=== PATIENT | female | born 1960 | race African-American/Black ===

== ENCOUNTER 2016-11-13 16:27 | Inpatient (IN) | payer OTHER ==
[2016-11-13 17:45] LABS: ABSOLUTE BASOPHILS # (AUTO) 0.1 10^3/uL (0.0-0.2); ABSOLUTE EOSINOPHILS # (AUTO) 0.1 10^3/uL (0.0-0.6); ABSOLUTE LYMPHOCYTES (AUTO) 2.4 10^3/uL (0.5-4.7); ABSOLUTE MONOCYTES (AUTO) 1.1 10^3/uL (0.1-1.4); ABSOLUTE NEUT (AUTO) 6.6 10^3/uL (1.7-8.2); BASOPHILS % (AUTO) 0.9 % (0-2); EOSINOPHILS % (AUTO) 0.6 % (0-6); HEMATOCRIT 20.2 % (36.0-47.0); HGB HCT DIFFERENCE -2.2; LYMPHOCYTES % (AUTO) 23.2 % (13-45); MEAN CORPUSCULAR HEMOGLOBIN 25.9 pg (27.0-33.4); MEAN CORPUSCULAR HGB CONC 29.5 g/dL (32.0-36.0); MEAN CORPUSCULAR VOLUME 88 fl (80-97); MONOCYTES % (AUTO) 10.5 % (3-13); RED CELL DISTRIBUTION WIDTH 21.5 % (11.5-14.0); SEGMENTED NEUTROPHILS % (AUTO) 64.8 % (42-78); WHITE BLOOD COUNT 10.1 10^3/uL (4.0-10.5)
[2016-11-13 17:58] LABS: APPEARANCE,URINE CLEAR; BILIRUBIN,URINE NEGATIVE (NEGATIVE); GLUCOSE, URINE NEGATIVE (NEGATIVE); KETONES,URINE NEGATIVE (NEGATIVE); LEUKOCYTE ESTERASE,URINE NEGATIVE (NEGATIVE); NITRITE,URINE NEGATIVE (NEGATIVE); PROTEIN,URINE NEGATIVE (NEGATIVE); URINE SPECIFIC GRAVITY 1.004; UROBILINOGEN,URINE NEGATIVE mg/dL (<2.0)
[2016-11-13] MEDS ORDERED: PANTOPRAZOLE SODIUM 40 MG VIAL IV ONE (17:58)
[2016-11-13 18:01] LABS: ALANINE AMINOTRANSFERASE 22 U/L (9-52); ALBUMIN 4.3 g/dL (3.5-5.0); ALKALINE PHOSPHATASE 60 U/L (38-126); ANION GAP 10 (5-19); ASPARTATE AMINO TRANSFERASE 16 U/L (14-36); BILIRUBIN,DIRECT 0.2 mg/dL (0.0-0.4); BILIRUBIN,TOTAL 0.3 mg/dL (0.2-1.3); BLOOD UREA NITROGEN 17 mg/dL (7-20); CALCIUM 9.4 mg/dL (8.4-10.2); CARBON DIOXIDE 23 mmol/L (22-30); CHLORIDE 106 mmol/L (98-107); CREATININE RESULT 1.14 mg/dL (0.52-1.25); GLUCOSE 94 mg/dL (75-110); POTASSIUM 4.7 mmol/L (3.6-5.0); SODIUM 139.2 mmol/L (137-145); TOTAL PROTEIN 7.1 g/dL (6.3-8.2)
--- NOTE | 2016-11-13 18:03 | ER Document Report ---
ED General - General Chief Complaint: Abnormal Lab Results Stated Complaint: FATIGUE Time Seen by Provider: 11/13/16 17:06 Notes: 56-year-old female with a history of iron deficiency anemia and known duodenitis /gastritis presents referred from her primary care doctor for anemia. She feels decreased energy and some occasional exertional shortness of breath as well as thinks that her tongue is pale. She has a history of duodenitis and gastritis, was last scoped in 2016. She does state she has been having dark stool, like dark black for about 3 weeks every day and is not taking oral iron. TRAVEL OUTSIDE OF THE [place] IN LAST 30 DAYS: No - Related Data Allergies/Adverse Reactions: No Known Allergies Allergy (Verified 11/13/16 16:35) Past Medical History - General Information source: Patient - Social History Smoking Status: Never Smoker Chew tobacco use (# tins/day): No Frequency of alcohol use: None Drug Abuse: None Family History: None - Past Medical History Cardiac Medical History: Reports: Hx Hypertension Denies: Hx Congestive Heart Failure, Hx Coronary Artery Disease, Hx Heart Attack Pulmonary Medical History: Reports: Hx Asthma Denies: Hx Bronchitis, Hx COPD, Hx Pneumonia, Hx Tuberculosis Neurological Medical History: Denies: Hx Cerebrovascular Accident, Hx Seizures Renal/ Medical History: Denies: Hx End Stage Renal Disease, Hx Kidney Stones, Hx Peritoneal Dialysis GI Medical History: Reports: Hx Gastroesophageal Reflux Disease. Denies: Hx Cirrhosis, Hx Ulcer Musculoskeltal Medical History: Denies Hx Arthritis, Denies Hx Multiple Sclerosis Psychiatric Medical History: Denies: Hx Bipolar Disorder, Hx Depression, Hx Schizophrenia Past Surgical History: Denies: Hx Hysterectomy, Hx Pacemaker - Immunizations Hx Diphtheria, Pertussis, Tetanus Vaccination: No Review of Systems - Review of Systems Notes: REVIEW OF SYSTEMS GEN: Fatigue and decreased energy ENT: Denies sore throat, nasal discharge, ear pain EYES: Denies blurry vision, eye pain, discharge CV: Denies chest pain, palpitations, edema RESP: Denies cough, shortness of breath, wheezing GI: Dark stool MSK: Denies joint pain/swelling, edema, SKIN: Denies rash, skin lesions LYMPH: Denies swollen glands/lymph nodes NEURO: Denies headache, focal weakness or numbness, dizziness PSYCH: Denies depression, suicidal or homicidal ideation PHYSICAL EXAMINATION General: No acute distress, well-nourished Head: Atraumatic, normocephalic ENT: Mouth normal, oropharynx moist, no exudates or tonsillar enlargement Eyes: Conjunctiva normal, pupils equal, lids normal Neck: No JVD, supple, no guarding CVS: Normal rate, regular rhythm, no murmurs Resp: No resp distress, equal and normal breath sounds bilaterally GI: Nondistended, soft, no tenderness to palpation, no rebound or guarding Ext: No deformities, no edema, normal range of motion in upper and lower ext Back: No CVA or midline TTP Skin: No rash, warm Lymphatic: No lymphadeopathy noted Neuro: Awake, alert. Face symmetric. GCS 15. Physical Exam - Vital signs Vitals: Temp Pulse Resp BP Pulse Ox 99.0 F 84 18 127/78 H 100 11/13/16 16:37 11/13/16 16:37 11/13/16 16:37 11/13/16 16:37 11/13/16 16:37 Course - Re-evaluation Re-evalutation: 11/13/16 18:02 56-year-old female with known iron deficiency anemia presents with black stool and decreased energy. Her outpatient hemoglobin is 5.9, her baseline seems to be 7-8. I am concerned for a slow GI bleed. I will give her Protonix, type and cross her, she is amenable to transfusion. I spoke with from GI who agrees to be consulted if the hospitalist needs him to scope the patient. Also agrees with the remainder of my plan. 11/13/16 18:12 Patient has a low hemoglobin today likely from a slow GI bleed. I spoke with GI , Dr. Tena, who agreed to see the patient later tonight. Ordered Protonix. Admitted to Dr. Dawson. - Vital Signs Vital signs: Temp Pulse Resp BP Pulse Ox 99.0 F 84 18 127/78 H 100 11/13/16 16:37 11/13/16 16:37 11/13/16 16:37 11/13/16 16:37 11/13/16 16:37 - Laboratory Result Diagrams: 11/13/16 17:25 11/13/16 17:25 Laboratory results interpreted by me: 11/13/16 11/13/16 17:25 17:25 RBC 2.30 L Hgb 6.0 L Hct 20.2 L MCH 25.9 L MCHC 29.5 L RDW 21.5 H Est GFR ( Amer) 59 L Est GFR (Non-Af Amer) 49 L - Consults No standard instances Time consulted: 18:00 - MARIBEL (GI) Reason for consultation: 11/13/16 18:03 GIBLEED Consulted provider: will see as inpatient Discharge - Discharge Clinical Impression: Anemia Qualifiers: Anemia type: iron deficiency Iron deficiency anemia type: chronic blood loss Qualified Code(s): D50.0 - Iron deficiency anemia secondary to blood loss ( chronic) Condition: Good Disposition: ADMITTED INPATIENT Admitting Provider: Hospitalist Unit Admitted: Telemetry
[2016-11-13] MEDS ORDERED: METOCLOPRAMIDE HCL ORAL SOLN 10 MG/10 ML UDCUP PO ONE (18:11)
[2016-11-13] MEDS ORDERED: FUROSEMIDE INJ/PF 20 MG/2 ML SDV IV PRN (18:11)
[2016-11-13] MEDS ORDERED: LIDOCAINE 2% VISCOUS SOLN 20 ML UDCUP PO ONE (18:11)
[2016-11-13] MEDS ORDERED: MAG HYDROX/AL HYDROX/SIMETH SUSP 30 ML UDCUP PO ONE (18:11)
[2016-11-13] MEDS ORDERED: NORMAL SALINE 250 ML IV PRN ×2 (18:11)
[2016-11-13] MEDS ORDERED: ACETAMINOPHEN 325 MG TABLET PO PRN (18:11)
[2016-11-13] MEDS ORDERED: DIPHENHYDRAMINE HCL 25 MG CAPSULE PO PRN (18:11)
[2016-11-13] MEDS ORDERED: ONDANSETRON HCL INJ/PF 4 MG/2 ML SDV IV PRN (18:16)
[2016-11-13] MEDS ORDERED: NORMAL SALINE 1000 ML 1,000 ML IV PRN (18:16)
[2016-11-13 18:42] LABS: PROTHROMBIN TIME 14.1 SEC (11.4-15.4)
[2016-11-13] MEDS ORDERED: PANTOPRAZOLE SODIUM 80 MG in NORMAL SALINE 100 ML IV ONE (18:43)
--- NOTE | 2016-11-13 18:54 | PDOC H&P ---
History of Present Illness Admission Date/PCP: 11/13/2016 [facility], unknown primary History of Present Illness: ABIEL ASTUDILLO is a 56 year old female Past Medical History Cardiac Medical History: Reports: Hypertension Denies: Congestive Heart Failure, Coronary Artery Disease, Myocardial Infarction Pulmonary Medical History: Reports: Asthma Denies: Bronchitis, Chronic Obstructive Pulmonary Disease (COPD), Pneumonia, Tuberculosis Neurological Medical History: Denies: Seizures Renal/ Medical History: Denies: End Stage Renal Disease GI Medical History: Reports: Gastroesophageal Reflux Disease Denies: Cirrhosis Musculoskeltal Medical History: Denies: Arthritis Psychiatric Medical History: Denies: Bipolar Disorder, Depression Hematology: Reports: Anemia Denies: Bleeding Tendencies Past Surgical History Past Surgical History: Reports: Other - eye surgery Denies: Hysterectomy, Pacemaker Social History Smoking Status: Never Smoker Frequency of Alcohol Use: None Hx Recreational Drug Use: No Drugs: None Hx Prescription Drug Abuse: No - Advance Directive Resuscitation Status: Full Code Surrogate healthcare decision maker:: Sister, Alta Family History Family History: CAD, DM, Hypertension Parental Family History Reviewed: Yes Children Family History Reviewed: Yes Sibling(s) Family History Reviewed.: Yes Medication/Allergy Home Medications: Lisinopril [Prinivil 5 Mg Tablet] 20 mg PO DAILY 10/05/11 Omeprazole [Prilosec 20 mg Capsule] 20 mg PO DAILY 10/05/11 Multivits-Min/Iron/FA/Lutein [Centrum Silver Women Tablet] 1 each PO DAILY 07/01 Cholecalciferol (Vitamin D3) [Vitamin D] 1,000 unit PO DAILY 06/21/15 Mv, Min #36/Iron,Carbonyl/FA [Geritol Complete Tablet] 100 mg 07/05/15 Allergies/Adverse Reactions: No Known Allergies Allergy (Verified 11/13/16 16:35) Review of Systems Constitutional: ABSENT: chills, fever(s), headache(s), weight gain, weight loss Eyes: ABSENT: visual disturbances Ears: ABSENT: hearing changes Cardiovascular: ABSENT: chest pain, dyspnea on exertion, edema, orthropnea, palpitations Respiratory: ABSENT: cough, hemoptysis Gastrointestinal: PRESENT: heartburn, melena, nausea. ABSENT: abdominal pain, coffee ground emesis, constipation, diarrhea, hematemesis, hematochezia, vomiting Genitourinary: ABSENT: dysuria, hematuria Musculoskeletal: ABSENT: joint swelling Integumentary: ABSENT: rash, wounds Neurological: ABSENT: abnormal gait, abnormal speech, confusion, dizziness, focal weakness, syncope Psychiatric: ABSENT: anxiety, depression, homidical ideation, suicidal ideation Endocrine: ABSENT: cold intolerance, heat intolerance, polydipsia, polyuria Hematologic/Lymphatic: ABSENT: easy bleeding, easy bruising Physical Exam Vital Signs: Temp Pulse Resp BP Pulse Ox 99.0 F 84 18 127/78 H 100 11/13/16 16:37 11/13/16 16:37 11/13/16 16:37 11/13/16 16:37 11/13/16 16:37 Intake & Output 11/12/16 11/13/16 11/14/16 06:59 06:59 06:59 Weight 130 kg General appearance: PRESENT: no acute distress, obese, well-developed, well- nourished Head exam: PRESENT: atraumatic, normocephalic Eye exam: PRESENT: conjunctiva pale, EOMI, PERRLA. ABSENT: conjunctiva pink, scleral icterus Ear exam: PRESENT: normal external ear exam Mouth exam: PRESENT: dry mucosa, tongue midline Neck exam: ABSENT: JVD, lymphadenopathy, thyromegaly, tracheal deviation Respiratory exam: PRESENT: clear to auscultation andres. ABSENT: rales, rhonchi, wheezes Cardiovascular exam: PRESENT: RRR, +S1, +S2. ABSENT: diastolic murmur, gallop, rubs, systolic murmur, tachycardia Pulses: PRESENT: normal dorsalis pedis pul Vascular exam: PRESENT: normal capillary refill GI/Abdominal exam: PRESENT: normal bowel sounds, soft. ABSENT: distended, firm , guarding, mass, Bae's sign, organolmegaly, rebound, rigid, tenderness Rectal exam: PRESENT: deferred Extremities exam: PRESENT: full ROM. ABSENT: calf tenderness, clubbing, pedal edema Neurological exam: PRESENT: alert, awake, oriented to person, oriented to place , oriented to time, oriented to situation, CN II-XII grossly intact. ABSENT: motor sensory deficit Psychiatric exam: PRESENT: appropriate affect, normal mood. ABSENT: homicidal ideation, suicidal ideation Skin exam: PRESENT: dry, intact, warm. ABSENT: cyanosis, rash Results Laboratory Results: 11/13/16 17:25 11/13/16 17:25 11/13/16 11/13/16 11/13/16 17:25 17:25 17:25 WBC 10.1 RBC 2.30 L Hgb 6.0 L Hct 20.2 L MCV 88 MCH 25.9 L MCHC 29.5 L RDW 21.5 H Plt Count 401 Seg Neutrophils % 64.8 Lymphocytes % 23.2 Monocytes % 10.5 Eosinophils % 0.6 Basophils % 0.9 Absolute Neutrophils 6.6 Absolute Lymphocytes 2.4 Absolute Monocytes 1.1 Absolute Eosinophils 0.1 Absolute Basophils 0.1 Sodium 139.2 Potassium 4.7 Chloride 106 Carbon Dioxide 23 Anion Gap 10 BUN 17 Creatinine 1.14 Est GFR ( Amer) 59 L Est GFR (Non-Af Amer) 49 L Glucose 94 Calcium 9.4 Total Bilirubin 0.3 AST 16 ALT 22 Alkaline Phosphatase 60 Total Protein 7.1 Albumin 4.3 Urine Color COLORLESS Urine Appearance CLEAR Urine pH 6.0 Ur Specific [place] 1.004 Urine Protein NEGATIVE Urine Glucose (UA) NEGATIVE Urine Ketones NEGATIVE Urine Blood NEGATIVE Urine Nitrite NEGATIVE Ur Leukocyte Esterase NEGATIVE Urine WBC (Auto) 1 Urine RBC (Auto) 0 Assessment & Plan - Diagnosis (1) Melena Is this a current diagnosis for this admission?: YesPlan: Patient reports an increase in dark stool over the last several days. She reports currently feeling fatigued. Denies chest pain or shortness of breath. Patient has a history of gastritis and duodenitis And was treated more than 6 months ago for H. pylori. Patient reports that she has been off of her PPI for the last several months. Will consult GI for upper endoscopy and place patient on Protonix drip. Clear liquids until midnight and then n.p.o. Place patient on Carafate. Patient denies excessive usage of Motrin, NSAIDs, Aleve, or aspirin. (2) Hypertension Qualifiers: Hypertension type: essential hypertension Qualified Code(s): I10 - Essential (primary) hypertension Is this a current diagnosis for this admission?: YesPlan: Patient reports taking lisinopril 20 mg p.o. daily (3) Anemia Qualifiers: Anemia type: iron deficiency Iron deficiency anemia type: chronic blood loss Qualified Code(s): D50.0 - Iron deficiency anemia secondary to blood loss (chronic) Is this a current diagnosis for this admission?: YesPlan: Patient with acute GI bleed and history of iron deficiency anemia. Place patient on Protonix drip and check CBC q. 6. Transfuse patient 3 Units ofpacked red blood cells. (4) Morbid obesity with BMI of 40.0-44.9, adult Is this a current diagnosis for this admission?: YesPlan: Dietary consult - Time Time Spent: 30 to 50 Minutes Medications reviewed and adjusted accordingly: Yes Anticipated discharge: Home Within: within 48 hours - Inpatient Certification Based on my medical assessment, after consideration of the patient's comorbidities, presenting symptoms, or acuity I expect that the services needed warrant INPATIENT care.: Yes I certify that my determination is in accordance with my understanding of Medicare's requirements for reasonable and necessary INPATIENT services [42 CFR 412.3e].: Yes Medical Necessity: Need For IV Fluids, Risk of Complication if Not Cared For in Hospital Post Hospital Care: D/C Leather [employer] Maker Documentation
[2016-11-13] MEDS: NORMAL SALINE 100 ML with PANTOPRAZOLE SODIUM 80 MG IV PRN ×2 (21:28)
[2016-11-13] MEDS ORDERED: BISACODYL 5 MG TABEC PO ONE (21:30)
[2016-11-13] MEDS: SUCRALFATE SUSP 1 GM/10 ML UDCUP PO SCH (22:57)
[2016-11-14] MEDS: NORMAL SALINE 100 ML with PANTOPRAZOLE SODIUM 80 MG IV PRN ×4 (06:31→15:13)
[2016-11-14] MEDS ORDERED: PEG 3350/NA SULF,BICARB,CL/KCL 4000 ML PO ONE (07:00)
[2016-11-14 08:07] LABS: ABSOLUTE BASOPHILS # (AUTO) 0.1 10^3/uL (0.0-0.2); ABSOLUTE EOSINOPHILS # (AUTO) 0.1 10^3/uL (0.0-0.6); ABSOLUTE LYMPHOCYTES (AUTO) 1.3 10^3/uL (0.5-4.7); ABSOLUTE MONOCYTES (AUTO) 0.7 10^3/uL (0.1-1.4); ABSOLUTE NEUT (AUTO) 4.5 10^3/uL (1.7-8.2); EOSINOPHILS % (AUTO) 0.9 % (0-6); HGB HCT DIFFERENCE -1.4; LYMPHOCYTES % (AUTO) 20.2 % (13-45); MEAN CORPUSCULAR HGB CONC 31.4 g/dL (32.0-36.0); MEAN CORPUSCULAR VOLUME 86 fl (80-97); MONOCYTES % (AUTO) 10.8 % (3-13); RED BLOOD COUNT 3.02 10^6/uL (3.72-5.28); RED CELL DISTRIBUTION WIDTH 19.4 % (11.5-14.0); SEGMENTED NEUTROPHILS % (AUTO) 67.1 % (42-78); WHITE BLOOD COUNT 6.7 10^3/uL (4.0-10.5)
[2016-11-14 08:13] LABS: HEMOGLOBIN 8.2 g/dL (12.0-15.5)
[2016-11-14] MEDS: SUCRALFATE SUSP 1 GM/10 ML UDCUP PO SCH ×3 (08:14→16:15)
[2016-11-14 08:22] LABS: ALANINE AMINOTRANSFERASE 21 U/L (9-52); ALBUMIN 4.4 g/dL (3.5-5.0); ALKALINE PHOSPHATASE 61 U/L (38-126); ANION GAP 9 (5-19); ASPARTATE AMINO TRANSFERASE 16 U/L (14-36); BILIRUBIN,DIRECT 0.2 mg/dL (0.0-0.4); BILIRUBIN,TOTAL 1.1 mg/dL (0.2-1.3); BLOOD UREA NITROGEN 12 mg/dL (7-20); CALCIUM 9.2 mg/dL (8.4-10.2); CARBON DIOXIDE 24 mmol/L (22-30); CHLORIDE 106 mmol/L (98-107); CREATININE RESULT 1.14 mg/dL (0.52-1.25); GLUCOSE 134 mg/dL (75-110); POTASSIUM 4.4 mmol/L (3.6-5.0); SODIUM 139.3 mmol/L (137-145)
[2016-11-14 11:41] LABS: ABSOLUTE BASOPHILS # (AUTO) 0.1 10^3/uL (0.0-0.2); ABSOLUTE EOSINOPHILS # (AUTO) 0.1 10^3/uL (0.0-0.6); ABSOLUTE LYMPHOCYTES (AUTO) 1.5 10^3/uL (0.5-4.7); ABSOLUTE MONOCYTES (AUTO) 0.9 10^3/uL (0.1-1.4); ABSOLUTE NEUT (AUTO) 5.7 10^3/uL (1.7-8.2); BASOPHILS % (AUTO) 0.7 % (0-2); EOSINOPHILS % (AUTO) 0.8 % (0-6); HEMATOCRIT 29.7 % (36.0-47.0); HEMOGLOBIN 9.6 g/dL (12.0-15.5); HGB HCT DIFFERENCE -0.9; LYMPHOCYTES % (AUTO) 18.7 % (13-45); MEAN CORPUSCULAR HEMOGLOBIN 27.7 pg (27.0-33.4); MEAN CORPUSCULAR HGB CONC 32.3 g/dL (32.0-36.0); MEAN CORPUSCULAR VOLUME 86 fl (80-97); MONOCYTES % (AUTO) 10.8 % (3-13); RED BLOOD COUNT 3.46 10^6/uL (3.72-5.28); RED CELL DISTRIBUTION WIDTH 18.7 % (11.5-14.0); WHITE BLOOD COUNT 8.2 10^3/uL (4.0-10.5)
--- NOTE | 2016-11-14 12:51 | EKG REPORT ---
SEVERITY:- ABNORMAL ECG - SINUS RHYTHM LEFT VENTRICULAR HYPERTROPHY : Confirmed by: Tonya Fuentes MD 14-Nov-2016 12:49:58
[2016-11-14] MEDS ORDERED: FENTANYL CITRATE INJ/PF 100 MCG/2 ML AMPUL ONE (14:47)
[2016-11-14] MEDS ORDERED: NALOXONE HCL INJ/PF 0.4 MG/1 ML SDV ONE (14:47)
[2016-11-14] MEDS ORDERED: GLUCAGON,HUMAN RECOMB 1 MG INJ ONE (14:47)
[2016-11-14] MEDS ORDERED: FLUMAZENIL INJ 0.5 MG/5 ML VIAL IV ONE (14:47)
[2016-11-14] MEDS ORDERED: EPINEPHRINE INJ 1 MG/10 ML DISP.SYRIN ONE (14:47)
[2016-11-14] MEDS ORDERED: HYDRALAZINE HCL INJ/PF 20 MG/1 ML SDV IV PRN (15:33)
--- NOTE | 2016-11-14 15:36 | PDOC PROGRESS REPORT ---
Subjective Progress Note for:: 11/14/16 Subjective:: Patient was prepped overnight for colonoscopy. She states she has noted no further blood in her stools overnight. She denies fever, chills, abdominal pain , nausea, vomiting. Physical Exam Vital Signs: Temp Pulse Resp BP Pulse Ox 97.8 F 70 18 149/87 H 100 11/14/16 12:06 11/14/16 14:00 11/14/16 12:06 11/14/16 12:06 11/14/16 12:06 Intake & Output 11/13/16 11/14/16 11/15/16 06:59 06:59 06:59 Intake Total 1650 4960 Balance 1650 4960 Weight 129.6 kg GENERAL: No acute distress HEENT: Conjunctiva clear, nonicteric, moist mucous membranes, no JVD, midline trachea RESPIRATORY: Clear to auscultation bilaterally, no wheezes, no rhonchi CARDIAC: Regular rate and rhythm, no murmurs/gallops/rubs ABDOMEN: Soft, nondistended, nontender, positive bowel sounds, no rebound, no guarding EXTREMETIES: No edema, cyanosis, clubbing NEUROLOGIC: Alert, oriented to person/place/time, CN's grossly intact, no focal deficits SKIN: No rash, wounds PSYCH: Normal mood, normal affect Results Laboratory Results: 11/14/16 11:30 11/14/16 07:55 11/14/16 11/14/16 11/14/16 07:55 07:55 11:30 WBC 6.7 8.2 RBC 3.02 L 3.46 L Hgb 8.2 L D 9.6 L Hct 26.0 L 29.7 L MCV 86 86 MCH 27.0 27.7 MCHC 31.4 L 32.3 RDW 19.4 H 18.7 H Plt Count 376 394 Seg Neutrophils % 67.1 69.0 Lymphocytes % 20.2 18.7 Monocytes % 10.8 10.8 Eosinophils % 0.9 0.8 Basophils % 1.0 0.7 Absolute Neutrophils 4.5 5.7 Absolute Lymphocytes 1.3 1.5 Absolute Monocytes 0.7 0.9 Absolute Eosinophils 0.1 0.1 Absolute Basophils 0.1 0.1 Sodium 139.3 Potassium 4.4 Chloride 106 Carbon Dioxide 24 Anion Gap 9 BUN 12 Creatinine 1.14 Est GFR ( Amer) 59 L Est GFR (Non-Af Amer) 49 L Glucose 134 H Calcium 9.2 Total Bilirubin 1.1 AST 16 ALT 21 Alkaline Phosphatase 61 Total Protein 7.0 Albumin 4.4 Assessment & Plan - Diagnosis (1) Melena Is this a current diagnosis for this admission?: YesPlan: Patient scheduled for EGD and colonoscopy this afternoon. IV Protonix for now. Patient incidentally had prior EGD showing gastritis and was treated for H. pylori within the past year. (2) Acute blood loss anemia Is this a current diagnosis for this admission?: YesPlan: Status post 3 units PRBC. Monitor H&H for stability. Start iron supplementation. Patient has been followed by Dr. Abebe hematology as an outpatient. (3) Hypertension Qualifiers: Hypertension type: essential hypertension Qualified Code(s): I10 - Essential (primary) hypertension Is this a current diagnosis for this admission?: YesPlan: Restart lisinopril 20 mg daily. As needed IV hydralazine. (4) Morbid obesity with BMI of 40.0-44.9, adult Is this a current diagnosis for this admission?: Yes - Time Time Spent with patient: 25-34 minutes Anticipated discharge: Home Within: within 24 hours
[2016-11-14 17:18] LABS: ABSOLUTE BASOPHILS # (AUTO) 0.1 10^3/uL (0.0-0.2); ABSOLUTE LYMPHOCYTES (AUTO) 1.6 10^3/uL (0.5-4.7); ABSOLUTE NEUT (AUTO) 6.3 10^3/uL (1.7-8.2); BASOPHILS % (AUTO) 0.9 % (0-2); EOSINOPHILS % (AUTO) 0.5 % (0-6); HEMATOCRIT 28.7 % (36.0-47.0); HEMOGLOBIN 9.3 g/dL (12.0-15.5); HGB HCT DIFFERENCE -0.8; LYMPHOCYTES % (AUTO) 18.1 % (13-45); MEAN CORPUSCULAR HEMOGLOBIN 27.9 pg (27.0-33.4); MEAN CORPUSCULAR HGB CONC 32.3 g/dL (32.0-36.0); MEAN CORPUSCULAR VOLUME 86 fl (80-97); MONOCYTES % (AUTO) 10.8 % (3-13); RED BLOOD COUNT 3.33 10^6/uL (3.72-5.28); RED CELL DISTRIBUTION WIDTH 18.7 % (11.5-14.0); SEGMENTED NEUTROPHILS % (AUTO) 69.7 % (42-78)
[2016-11-14] MEDS ORDERED: DOCUSATE SODIUM 100 MG CAPSULE PO SCH (18:00)
[2016-11-14] MEDS: MIDAZOLAM 2 MG/2 ML INJ ONE ×2 (18:50→19:05)
--- NOTE | 2016-11-14 19:03 | PDOC CONSULTATION ---
Consultation Consult Date: 11/13/16 History of Present Illness Admission Date/PCP: 11/13/16 18:16 History of Present Illness: This is a 56-year-old patient who was admitted to the emergency room with anemia. She was sent to the hospital by her PMD. Her hemoglobin was 6 with low MCH and MCHC. She has a chronic history of anemia and has been following up with Dr. Abebe. I reviewed her old blood work which showed a hemoglobin of 8 in June 2014, 6.3 in June 2015 and a ferritin of 55 in June 2014. She has been getting iron infusions. She denies abdominal pain, nausea, or vomiting. Her bowels move regularly and her stools have been dark green or black for the last 1 year. She takes multivitamin every day. She had a colonoscopy by Dr. Moreno in September 2011 that showed rectosigmoid polyps, EGD in June 2014 that showed a hiatal hernia and gastritis, EGD and colonoscopy by Dr. Friedman in May 2015 that showed gastritis, duodenitis, nonspecific colitis and hemorrhoids. Past Medical History Cardiac Medical History: Reports: Hypertension Denies: Congestive Heart Failure, Coronary Artery Disease, Myocardial Infarction Pulmonary Medical History: Reports: Asthma Denies: Bronchitis, Chronic Obstructive Pulmonary Disease (COPD), Pneumonia, Tuberculosis Neurological Medical History: Denies: Seizures Renal/ Medical History: Denies: End Stage Renal Disease GI Medical History: Reports: Gastroesophageal Reflux Disease Denies: Cirrhosis Musculoskeltal Medical History: Denies: Arthritis Psychiatric Medical History: Denies: Bipolar Disorder, Depression Hematology: Reports: Anemia Denies: Bleeding Tendencies Past Surgical History Past Surgical History: Reports: Other - eye surgery Denies: Hysterectomy, Pacemaker Social History Smoking Status: Never Smoker Frequency of Alcohol Use: None Hx Recreational Drug Use: No Drugs: None Hx Prescription Drug Abuse: No - Advance Directive Resuscitation Status: Full Code Family History Family History: CAD, DM, Hypertension Parental Family History Reviewed: No Children Family History Reviewed: NA Sibling(s) Family History Reviewed.: NA Medication/Allergy Home Medications: Cholecalciferol (Vitamin D3) [Vitamin D3 1000 Unit Tablet] 1,000 unit PO DAILY 11/13/16 Lisinopril [Prinivil] 20 mg PO DAILY 11/13/16 Mv, Min #36/Iron,Carbonyl/FA [Geritol Complete Tablet] 1 tab PO DAILY 11/13/16 Potassium Citrate [Potassium Citrate ER] 30 meq PO DAILY 11/13/16 Allergies/Adverse Reactions: No Known Allergies Allergy (Verified 11/13/16 16:35) Review of Systems All systems: reviewed and no additional remarkable complaints except as stated Physical Exam Vital Signs: Temp Pulse Resp BP Pulse Ox 98.2 F 86 18 160/98 H 97 11/14/16 15:53 11/14/16 18:55 11/14/16 18:55 11/14/16 18:55 11/14/16 18:55 Intake & Output 11/13/16 11/14/16 11/15/16 06:59 06:59 06:59 Intake Total 1650 4960 Balance 1650 4960 Weight 129.6 kg Exam: General: Patient is alert and looks well. HEENT: There is pallor but no jaundice. PERRLA. Oropharynx normal Respiratory: No chest deformity. No respiratory distress. Chest wall palpitation was unremarkable. Breath sounds were normal Cardiovascular: Heart sounds 1 and 2 normal with no murmurs. Abdominal: Not distended and obese. Soft and nontender. Liver and spleen not palpable. No ascites demonstrated. Bowel sounds active. Rectal examination was deferred. Extremities: No edema Neurological: Alert and oriented x4. Grossly nonfocal. Normal speech Skin: No significant rash Psychological: Normal affect Results Laboratory Results: 11/14/16 17:09 11/14/16 07:55 11/14/16 11/14/16 11/14/16 07:55 07:55 11:30 WBC 6.7 8.2 RBC 3.02 L 3.46 L Hgb 8.2 L D 9.6 L Hct 26.0 L 29.7 L MCV 86 86 MCH 27.0 27.7 MCHC 31.4 L 32.3 RDW 19.4 H 18.7 H Plt Count 376 394 Seg Neutrophils % 67.1 69.0 Lymphocytes % 20.2 18.7 Monocytes % 10.8 10.8 Eosinophils % 0.9 0.8 Basophils % 1.0 0.7 Absolute Neutrophils 4.5 5.7 Absolute Lymphocytes 1.3 1.5 Absolute Monocytes 0.7 0.9 Absolute Eosinophils 0.1 0.1 Absolute Basophils 0.1 0.1 Sodium 139.3 Potassium 4.4 Chloride 106 Carbon Dioxide 24 Anion Gap 9 BUN 12 Creatinine 1.14 Est GFR ( Amer) 59 L Est GFR (Non-Af Amer) 49 L Glucose 134 H Calcium 9.2 Total Bilirubin 1.1 AST 16 ALT 21 Alkaline Phosphatase 61 Total Protein 7.0 Albumin 4.4 11/14/16 17:09 WBC 9.0 RBC 3.33 L Hgb 9.3 L Hct 28.7 L MCV 86 MCH 27.9 MCHC 32.3 RDW 18.7 H Plt Count 373 Seg Neutrophils % 69.7 Lymphocytes % 18.1 Monocytes % 10.8 Eosinophils % 0.5 Basophils % 0.9 Absolute Neutrophils 6.3 Absolute Lymphocytes 1.6 Absolute Monocytes 1.0 Absolute Eosinophils 0.0 Absolute Basophils 0.1 Sodium Potassium Chloride Carbon Dioxide Anion Gap BUN Creatinine Est GFR ( Amer) Est GFR (Non-Af Amer) Glucose Calcium Total Bilirubin AST ALT Alkaline Phosphatase Total Protein Albumin Assessment & Plan - Diagnosis (1) Iron deficiency anemia Is this a current diagnosis for this admission?: YesPlan: She has chronic iron deficiency anemia that is being followed up by the cash clerk. I suspect her current hemoglobin reflects her chronic disease and not an acute bleed. She has had dark stools for up to a year. She will undergo an EGD and colonoscopy in the hospital and a capsule endoscopy as outpatient (2) Melena Is this a current diagnosis for this admission?: Yes
--- NOTE | 2016-11-14 19:41 | Operative Report ---
Operative Report DATE OF SURGERY: 11/14/16 Operative Report: Pre-op diagnosis: Iron deficiency anemia Post-op diagnosis: 1. Large hiatal hernia 2. Tanner erosions 3. Rule out duodenal villous atrophy 4. Sigmoid colon polyp Surgery: Upper endoscopy with biopsy and Colonoscopy with polypectomy Medications: Versed 3mg, Fentanyl 100mcg IV push Tissue removed: Gastric antral and duodenal biopsy. Colon polyp Procedure: After informed consent obtained from patient, patient's pharynx was sprayed with Hurricane and conscious sedation was achieved. The upper endoscope was then inserted into the esophagus under direct vision and advanced into the stomach and further into the duodenum. Detailed examination of the duodenum, stomach and the esophagus was then performed. A digital rectal examination was performed and this was unremarkable. The colonoscope was inserted into the rectum and advanced to the cecum. The appendiceal orifice and the terminal ileum were both identified. The mucosa was examined into details as the colonoscope was slowly pulled out of the patient. The endoscope was retroflexed in the rectum. Patient tolerated the procedure well. Findings Esophagus: Normal with the Z line at 32 cm Stomach: Very large hiatal hernia containing more than half of the stomach with a few long erosions at the mouth of the hernia. Duodenum: The mucosa villi was not as prominent. Biopsy was taken to rule out villous atrophy Terminal ileum: Normal Cecum: Normal Ascending colon: Normal Transverse colon: Normal Descending colon: Normal Sigmoid colon: 4 mm polyp removed by polypectomy Rectum: Normal except for internal hemorrhoids Plan: I suspect her iron deficiency anemia is from the gastric erosions associated with the hiatal hernia. Patient should remain on a PPI twice a day and I will refer her for hernia repair. She will undergo capsule endoscopy in the office OPERATION: .
[2016-11-14] MEDS ORDERED: LANSOPRAZOLE 30 MG TAB.RAP.DR PO ONE (20:15)
[2016-11-15] MEDS ORDERED: DIPHENHYDRAMINE HCL 25 MG CAPSULE PO PRN (01:38)
[2016-11-15] MEDS ORDERED: ACETAMINOPHEN 325 MG TABLET PO PRN (01:38)
[2016-11-15] MEDS ORDERED: FUROSEMIDE INJ/PF 20 MG/2 ML SDV IV PRN (01:39)
[2016-11-15] MEDS ORDERED: NORMAL SALINE 250 ML IV PRN ×2 (01:40→01:41)
[2016-11-15 05:03] LABS: ABSOLUTE EOSINOPHILS # (AUTO) 0.1 10^3/uL (0.0-0.6); ABSOLUTE LYMPHOCYTES (AUTO) 1.5 10^3/uL (0.5-4.7); ABSOLUTE MONOCYTES (AUTO) 1.1 10^3/uL (0.1-1.4); ABSOLUTE NEUT (AUTO) 6.4 10^3/uL (1.7-8.2); BASOPHILS % (AUTO) 0.5 % (0-2); EOSINOPHILS % (AUTO) 0.7 % (0-6); HEMATOCRIT 26.4 % (36.0-47.0); HEMOGLOBIN 8.6 g/dL (12.0-15.5); HGB HCT DIFFERENCE -0.6; LYMPHOCYTES % (AUTO) 16.5 % (13-45); MEAN CORPUSCULAR HEMOGLOBIN 27.7 pg (27.0-33.4); MEAN CORPUSCULAR HGB CONC 32.8 g/dL (32.0-36.0); MEAN CORPUSCULAR VOLUME 85 fl (80-97); MONOCYTES % (AUTO) 11.8 % (3-13); RED BLOOD COUNT 3.11 10^6/uL (3.72-5.28); RED CELL DISTRIBUTION WIDTH 18.8 % (11.5-14.0); SEGMENTED NEUTROPHILS % (AUTO) 70.5 % (42-78)
[2016-11-15 05:23] LABS: ANION GAP 10 (5-19); BLOOD UREA NITROGEN 13 mg/dL (7-20); CALCIUM 8.6 mg/dL (8.4-10.2); CARBON DIOXIDE 22 mmol/L (22-30); CHLORIDE 107 mmol/L (98-107); CREATININE RESULT 1.14 mg/dL (0.52-1.25); GLUCOSE 100 mg/dL (75-110); SODIUM 139.1 mmol/L (137-145)
[2016-11-15] MEDS ORDERED: LANSOPRAZOLE 30 MG TAB.RAP.DR PO SCH (08:00)
[2016-11-15] MEDS ORDERED: LISINOPRIL 10 MG TABLET PO SCH (10:00)
[2016-11-15] MEDS ORDERED: (PENDING PHARMACY ID) (Lisinopril [Prinivil] 20 MG) PO SCH (10:00)
[2016-11-15] MEDS ORDERED: FERROUS SULFATE 325 MG TABLET PO SCH (10:00)
[2016-11-15 13:35] LABS: ABSOLUTE EOSINOPHILS # (AUTO) 0.1 10^3/uL (0.0-0.6); ABSOLUTE LYMPHOCYTES (AUTO) 1.5 10^3/uL (0.5-4.7); ABSOLUTE NEUT (AUTO) 5.4 10^3/uL (1.7-8.2); BASOPHILS % (AUTO) 0.6 % (0-2); EOSINOPHILS % (AUTO) 1.1 % (0-6); HEMATOCRIT 27.3 % (36.0-47.0); HEMOGLOBIN 8.8 g/dL (12.0-15.5); HGB HCT DIFFERENCE -0.9; LYMPHOCYTES % (AUTO) 18.3 % (13-45); MEAN CORPUSCULAR HEMOGLOBIN 27.8 pg (27.0-33.4); MEAN CORPUSCULAR HGB CONC 32.3 g/dL (32.0-36.0); MEAN CORPUSCULAR VOLUME 86 fl (80-97); MONOCYTES % (AUTO) 11.9 % (3-13); RED BLOOD COUNT 3.18 10^6/uL (3.72-5.28); RED CELL DISTRIBUTION WIDTH 18.6 % (11.5-14.0); SEGMENTED NEUTROPHILS % (AUTO) 68.1 % (42-78)
--- NOTE | 2016-11-15 15:00 | PDOC DISCHARGE SUMMARY ---
General - Admit/Disc Date/PCP Admission Date/Primary Care Provider: 11/13/16 18:16 Discharge Date: 11/15/16 - Discharge Diagnosis (1) Melena Is this a current diagnosis for this admission?: Yes (2) Acute blood loss anemia Is this a current diagnosis for this admission?: Yes (3) Hypertension Is this a current diagnosis for this admission?: Yes (4) Morbid obesity with BMI of 40.0-44.9, adult Is this a current diagnosis for this admission?: Yes - Additional Information Resuscitation Status: Full Code Discharge Diet: Cardiac Discharge Activity: Activity As Tolerated Home Medications: Cholecalciferol (Vitamin D3) [Vitamin D3 1000 Unit Tablet] 1,000 unit PO DAILY 11/13/16 Lisinopril [Prinivil] 20 mg PO DAILY 11/13/16 Mv, Min #36/Iron,Carbonyl/FA [Geritol Complete Tablet] 1 tab PO DAILY 11/13/16 Ferrous Sulfate [Feosol 325 mg Tablet] 325 mg PO DAILY #30 tablet 11/15/16 Omeprazole Magnesium [Prilosec Otc] 20 mg PO BID #60 tablet. 11/15/16 History of Present Illness Patient complains of: Abnormal lab results History of Present Illness: 56-year-old female with a history of iron deficiency anemia and known duodenitis /gastritis presents referred from her primary care doctor for anemia. She feels decreased energy and some occasional exertional shortness of breath as well as thinks that her tongue is pale. She has a history of duodenitis and gastritis, was last scoped in 2016. She does state she has been having dark stool, like dark black for about 3 weeks every day and is not taking oral iron. Hospital Course Hospital Course: Patient was admitted for anemia. Transfused [address] Tena of GI was consulted. Patient had EGD that showed hiatal hernia with erosions but no active bleeding. Colonoscopy showed polyp and internal hemorrhoids. H&H was low but stable after transfusion. Patient was started on iron supplement. She has an appointment to see hematology Dr. Abebe next Sunday. We will make an appointment for her to follow-up with GI as well. She is started on Prilosec 20 mg twice daily. She is advised to avoid NSAIDs as she has been taking over- the-counter Aleve fairly frequently. Physical Exam Vital Signs: Temp Pulse Resp BP Pulse Ox 97.8 F 68 18 128/78 H 99 11/15/16 11:03 11/15/16 11:03 11/15/16 11:03 11/15/16 11:03 11/15/16 11:03 Intake & Output 11/14/16 11/15/16 11/16/16 06:59 06:59 06:59 Intake Total 1650 9685 Balance 1650 9685 Weight 129.6 kg 128.5 kg GENERAL: No acute distress HEENT: Conjunctiva clear, nonicteric, moist mucous membranes, no JVD, midline trachea RESPIRATORY: Clear to auscultation bilaterally, no wheezes, no rhonchi CARDIAC: Regular rate and rhythm, no murmurs/gallops/rubs ABDOMEN: Soft, nondistended, nontender, positive bowel sounds, no rebound, no guarding EXTREMETIES: No edema, cyanosis, clubbing NEUROLOGIC: Alert, oriented to person/place/time, CN's grossly intact, no focal deficits SKIN: No rash, wounds PSYCH: Normal mood, normal affect Results Laboratory Results: 11/15/16 13:10 11/15/16 03:53 11/14/16 11/15/16 11/15/16 17:09 03:53 03:53 WBC 9.0 9.0 RBC 3.33 L 3.11 L Hgb 9.3 L 8.6 L Hct 28.7 L 26.4 L MCV 86 85 MCH 27.9 27.7 MCHC 32.3 32.8 RDW 18.7 H 18.8 H Plt Count 373 364 Seg Neutrophils % 69.7 70.5 Lymphocytes % 18.1 16.5 Monocytes % 10.8 11.8 Eosinophils % 0.5 0.7 Basophils % 0.9 0.5 Absolute Neutrophils 6.3 6.4 Absolute Lymphocytes 1.6 1.5 Absolute Monocytes 1.0 1.1 Absolute Eosinophils 0.0 0.1 Absolute Basophils 0.1 0.0 Sodium 139.1 Potassium 4.0 Chloride 107 Carbon Dioxide 22 Anion Gap 10 BUN 13 Creatinine 1.14 Est GFR ( Amer) 59 L Est GFR (Non-Af Amer) 49 L Glucose 100 Calcium 8.6 11/15/16 13:10 WBC 8.0 RBC 3.18 L Hgb 8.8 L Hct 27.3 L MCV 86 MCH 27.8 MCHC 32.3 RDW 18.6 H Plt Count 365 Seg Neutrophils % 68.1 Lymphocytes % 18.3 Monocytes % 11.9 Eosinophils % 1.1 Basophils % 0.6 Absolute Neutrophils 5.4 Absolute Lymphocytes 1.5 Absolute Monocytes 1.0 Absolute Eosinophils 0.1 Absolute Basophils 0.0 Sodium Potassium Chloride Carbon Dioxide Anion Gap BUN Creatinine Est GFR ( Amer) Est GFR (Non-Af Amer) Glucose Calcium Qualifiers PATEINT BEING DISCHARGED WITH ANY OF THE FOLLOWING DIAGNOSIS?: No Plan Time Spent: Less than 30 Minutes
[2016-11-15 15:19] VITALS: BP 151/87
== END 2016-11-15 16:54 | disposition home or self-care (01) | DRG 811 ==
LOC: ER 16:27 → EH 18:16 → UNDOADMIN 18:27 → EH 18:27 → 5 20:40
PROVIDERS: ADMIT Internal Medicine; ATTEND Internal Medicine
PROC: 30233N1 Transfusion of Nonautologous Red Blood Cells into Peripheral Vein, Percutaneous Approach (ICD-10-PCS; 2016-11-13)
PROC: 0DB98ZX Excision of Duodenum, Via Natural or Artificial Opening Endoscopic, Diagnostic (ICD-10-PCS; 2016-11-14)
PROC: 0DB68ZX Excision of Stomach, Via Natural or Artificial Opening Endoscopic, Diagnostic (ICD-10-PCS; principal; 2016-11-14 17:30)
PROC: 0DBN8ZX Excision of Sigmoid Colon, Via Natural or Artificial Opening Endoscopic, Diagnostic (ICD-10-PCS; 2016-11-14 17:30)
DX: D62 Acute posthemorrhagic anemia (principal); K25.4 Chronic or unspecified gastric ulcer with hemorrhage; K92.1 Melena; Z68.41 Body mass index [BMI] 40.0-44.9, adult; I10 Essential (primary) hypertension; E66.01 Morbid (severe) obesity due to excess calories; K44.9 Diaphragmatic hernia without obstruction or gangrene; K64.8 Other hemorrhoids; K62.1 Rectal polyp; J45.909 Unspecified asthma, uncomplicated; K21.9 Gastro-esophageal reflux disease without esophagitis; D50.0 Iron deficiency anemia secondary to blood loss (chronic); K63.5 Polyp of colon; Z79.899 Other long term (current) drug therapy; Z82.49 Family history of ischemic heart disease and other diseases of the circulatory system; Z83.3 Family history of diabetes mellitus
CPT/HCPCS: 36415; 36430; 43239; 45380; 80048; 80053; 81001; 85025; 85610; 85730; 86850; 86900; 86901; 86920; 88305; 88342; 93005; 93010; 99284; J0171; J1610; J1940; J2250; J2310; J3010; J3490; J7030; P9016; S0164